=== PATIENT | female | born 1950 | race Hispanic/Latino ===

== ENCOUNTER 2025-05-14 22:51 | Emergency (ER) | payer OTHER ==
[2025-05-14 23:40] LABS: Absolute Lymphocytes (CBC) 2.0 K/uL (0.7-4.9); Hematocrit 37.4 % (36.0-45.0); Hemoglobin 12.7 g/dL (12.0-15.0); MCH 29.9 pg (27.0-35.0); MCHC 33.9 g/dL (32.0-36.0); MCV 88.2 fL (80-100); MPV 8.7 fL (7.6-11.3); Nucleated RBC Absolute Count 0.0 (0-0); Nucleated Red Blood Cells % 0.0 % (0-0); RBC Red Blood Cell Count 4.24 M/uL (3.86-4.86); White Blood Count 5.20 thou/uL (4.3-10.9)
[2025-05-15 00:05] LABS: Sqamous Epithelial None Seen /HPF (None Seen); Urine Culture Reflex Order NOT NEEDED; Urine Microscopic Reflex YN ORDER UMIC
[2025-05-15 00:38] LABS: ALT/SGPT 25 U/L (13-56); AST/SGOT 17 U/L (15-37); Albumin 3.2 g/dL (3.4-5.0); Albumin/Globulin Ratio 0.9 (1.1-1.8); Alkaline Phosphatase 80 U/L (45-117); Anion Gap 8.8 mEq/L (5.0-15.0); BUN Blood Urea Nitrogen 19 mg/dL (7-18); Globulin 3.4 g/dL (2.3-3.5); Glucose Level 110 mg/dL (74-106); Magnesium 2.2 mg/dL (1.6-2.4); Potassium 3.8 mEq/L (3.5-5.1); Troponin High Sensitivity 7.3 pg/mL (<58.9)
[2025-05-15 01:00] LABS: PT Prothrombin Time 12.3 SECONDS (10-13.0); PTT, Activated Partial Thromb 35.0 SECONDS (27.2-37.4); Protime INR 1.09
[2025-05-15 01:03] LABS: Bilirubin Indirect, Calculated 0.4 mg/dL (0.2-0.8)
--- NOTE | 2025-05-15 02:00 | RAD REPORT ---
ADDENDUM #1 Critical findings discussed with Dr. Martin at 11:58 PM central standard time. Electronically signed by: Miguelina Moraes MD 05/15/2025 01:16 AM WooMe End of Addendum EXAM DESCRIPTION: Ct Stroke Brain Wo Cont CLINICAL HISTORY: 74 years Female STROKE ALERT COMPARISON: None TECHNIQUE: Images were obtained in axial, sagittal, and coronal planes. This exam was performed according to our departmental dose-optimization program which includes use of Automated Exposure Control, adjustment of the mA and/or kV according to patient size and/or use of iterative reconstruction techn ique. FINDINGS: Moderate ventricular enlargement. Moderate prominence of the cortical sulci. No abnormal increased attenuation is seen. No extra-axial fluid collections noted. No evidence for skull fracture. Unremarkable paranasal sinuses. Symmetric aeration of mastoid air rajeev ls bilaterally. IMPRESSION: No acute intracranial abnormality. No evidence for hemorrhage, mass lesion, or large acute infarction . Age-appropriate changes. Electronically signed by: Miguelina Moraes MD 05/14/2025 11:55 PM EdicyT Due to temporary technical issues with the PACS[employer] reporting system, reports are being erica d by the in-house radiologist without review as a courtesy to ensure prompt reporting the interpreting radiologist is fully responsible for the content of the report. Transcribed Date/Time: 05/15/2025 1:59 AM
--- NOTE | 2025-05-15 02:01 | RAD REPORT ---
PROCEDURE: CT Angiography Head and Neck With Intravenous Contrast CLINICAL INDICATION: The patient is 74 years old and is Female; Stroke alert. TECHNIQUE: [place] [facility] [place]/head and neck CT angiography protocol performed with intravenous contrast. Sagitta l and coronal reformatted images were created and reviewed. This CT exam was performed using one or more of the following dose reduction techniques: automated exposure control, adjustment of the m A and/or kV according to patient size, and/or use of iterative reconstruction technique. MIP reconstructed images were created and reviewed. COMPARISON: None. FINDINGS: HEAD: RIGHT ANTERIOR CEREBRAL ARTERY: Unremarkable No occlusion or significant stenosis. Anterior com municating artery is present. No aneurysm. RIGHT MIDDLE CEREBRAL ARTERY: Unremarkable No occlusion or significant stenosis. No aneurysm. RIGHT POSTERIOR CEREBRAL ARTERY: Unremarkable No occlusion or significant stenosis. No aneurysm . RIGHT INTRACRANIAL INTERNAL CAROTID ARTERY: Unremarkable No significant stenosis. No dissection or occlusion. RIGHT INTRACRANIAL VERTEBRAL ARTERY: Unremarkable No significant stenosis. No dissection or occ lusion. LEFT ANTERIOR CEREBRAL ARTERY: Unremarkable No occlusion or significant stenosis. No aneurysm. LEFT MIDDLE CEREBRAL ARTERY: Unremarkable No occlusion or significant stenosis. No aneurysm. LEFT POSTERIOR CEREBRAL ARTERY: origin of the left ATTENDANT CAMPGROUND. No occlusion or significant stenosis. No aneurysm. LEFT INTRACRANIAL INTERNAL CAROTID ARTERY: Unremarkable No significant stenosis. No dissection or occlusion. LEFT INTRACRANIAL VERTEBRAL ARTERY: Unremarkable No significant stenosis. No dissection or occl usion. BASILAR ARTERY: Unremarkable No occlusion or significant stenosis. No aneurysm. OTHER VASCULATURE: No vascular malformation. No filling defect within the superficial or deep intracranial veins to suggest sinus thrombos is. BRAIN AND EXTRA-AXIAL SPACES: Moderate global cerebral atrophy with commensurate sulcal and ventric ular enlargement, not greater than expected for patient age. Moderate-sized midline posterior fossa arachnoid cyst versus junaid cisterna magna. NECK: RIGHT COMMON CAROTID ARTERY: Unremarkable No significant stenosis. No dissection or occlusion. RIGHT EXTRACRANIAL INTERNAL CAROTID ARTERY: Unremarkable No significant stenosis. No dissection or occlusion. RIGHT EXTERNAL CAROTID ARTERY: Unremarkable No occlusion. RIGHT EXTRACRANIAL VERTEBRAL ARTERY: Unremarkable No significant stenosis. No dissection or occ lusion. LEFT COMMON CAROTID ARTERY: Unremarkable No significant stenosis. No dissection or occlusion. LEFT EXTRACRANIAL INTERNAL CAROTID ARTERY: Unremarkable No significant stenosis. No dissection or occlusion. LEFT EXTERNAL CAROTID ARTERY: Unremarkable No occlusion. LEFT EXTRACRANIAL VERTEBRAL ARTERY: Unremarkable No significant stenosis. No dissection or occl usion. OROPHARYNX: Punctate calcifications noted in the bilateral palatine tonsils, suggesting chronic ton sillitis. LUNG APICES: Unremarkable as visualized. HEAD and NECK: BONES/JOINTS: Multilevel cervical spondylosis without acute osseous abnormality. No discrete lytic or blastic abnormalities. SOFT TISSUES: Unremarkable CAROTID STENOSIS REFERENCE USING NASCET CRITERIA: % ICA stenosis = (1 - narrowest ICA diameter/diameter of distal cervical ICA) x 100. Mild - <50% stenosis. Moderate - 50-69% stenosis. Severe - 70-94% stenosis. Near occlusion - 95-99% stenosis. Occluded - 100% stenosis. IMPRESSION: 1. No occlusion, high-grade stenosis, or acute abnormality of the cervical or central intracranial arteries. 2. Punctate calcifications noted in the bilateral palatine tonsils, suggesting chronic tonsillitis. Electronically signed by: Desean Ruiz MD 05/15/2025 12:39 AM CDT RP Due to temporary technical issues with the PACS/[employer] reporting system, reports are being erica d by the in-house radiologist without review as a courtesy to ensure prompt reporting the interpreting radiologist is fully responsible for the content of the report. Transcribed Date/Time: 05/15/2025 2:00 AM
--- NOTE | 2025-05-15 02:21 | ER ---
Nurse's Notes [facility] Name: Michelle Metz Age: 74 yrs Sex: Female : 1950 Arrival Date: 05/14/2025 Time: 22:51 Bed 5 Private MD: Diagnosis: Transient cerebral ischemic attack, unspecified Presentation: 05/14 23:01 Chief complaint: Patient states: SLURRED SPEECH, CONFUSED, GENERALIZED WEAKNESS AROUND ha1 9:30 PM. SLURRED SPEECH HAS RESOLVED BUT STILL FEELING GENERALIZED WEAKNESS AND NOT HERSELF. 23:01 Coronavirus screen: Client denies travel out of the [place] in the last 14 days. Ebola ha1 Screen: No symptoms or risks identified at this time. Initial Sepsis Screen: Does the patient meet any 2 criteria? No. Patient's initial sepsis screen is negative. Does the patient have a suspected source of infection? No. Patient's initial sepsis screen is negative. Risk Assessment: Do you want to hurt yourself or someone else? Patient reports no desire to harm self or others. Onset of symptoms was May 14, 2025. 23:01 Method Of Arrival: Wheelchair ha1 23:01 Acuity: MARIELLE 2 ha1 Triage Assessment: 23:01 General: Appears comfortable, Behavior is calm, cooperative. Pain: Denies pain. Neuro: ha1 Level of Consciousness is awake, alert, obeys commands, Oriented to person, place, time, situation, Reports dizziness, weakness slurred speech at 2130. Cardiovascular: Capillary refill < 3 seconds Patient's skin is warm and dry. Respiratory: Airway is patent Respiratory effort is even, unlabored, Respiratory pattern is regular, symmetrical. GI: No signs and/or symptoms were reported involving the gastrointestinal system. Abdomen is round non-distended. : No signs and/or symptoms were reported regarding the genitourinary system. Derm: Skin is normal. Musculoskeletal: Circulation, motion, and sensation intact. Historical: - Allergies: 23:30 No Known Allergies; ha1 - PMHx: 23:30 Hypertensive disorder; VERTIGO; Hypercholesterolemia; ha1 - PSHx: 23:30 Cholecystectomy; ha1 - Immunization history:: Adult Immunizations up to date. - Infectious Disease History:: Denies. - Social history:: Smoking status: Patient denies any tobacco usage or history of. Screenin:01 [facility] ED Fall Risk Assessment (Adult) History of falling in the last 3 months, lg3 including since admission No falls in past 3 months (0 pts) Confusion or Disorientation No (0 pts) Intoxicated or Sedated No (0 pts) Impaired Gait No (0 pts) Mobility Assist Device Used No (0 pt) Altered Elimination No (0 pt) Score/Fall Risk Level 0 - 2 = Low Risk Oriented to surroundings, Maintained a safe environment, Educated pt \T\ family on fall prevention, incl call for assistance when getting out of bed, Assessed \T\ reinforced patient's understanding of fall precautions. VAN Screening: Arm Drift: Patient shows no arm weakness. Patient is VAN negative. Visual Disturbance: No visual disturbance noted. Aphasia: No aphasia noted. Neglect: No neglect noted. [place] Swallow Protocol Brief Cognitive Screen What is your name? Normal, Where are you right now? Normal, What year is it? Normal. Oral Mechanism Examination Facial Symmetry: Normal, Motion: Normal, Lip Closure: Normal, Oral Mechanism Result: Normal. 3 oz Water Swallow Challenge: Pt able to drink all water without stopping, coughing, choking or throat clearing: Yes Result: PASS Notified: Dewey Martin MD. 23:32 Abuse screen: Denies threats or abuse. Denies injuries from another. Nutritional ha1 screening: No deficits noted. Tuberculosis screening: No symptoms or risk factors identified. Assessment: 23:01 General: Appears in no apparent distress. comfortable, Behavior is calm, cooperative. lg3 Pain: Denies pain. Neuro: No deficits noted. [place] Agitation-Sedation Scale (RASS): 0 - Alert and Calm Level of Consciousness is awake, alert, obeys commands, Oriented to person, place, time, situation, Fuse Spooler are equal bilaterally Moves all extremities. Full function Gait is steady, Speech is normal, Facial symmetry appears normal, Pupils are PERRLA, Intact Reports dizziness, weakness. Cardiovascular: No deficits noted. Denies chest pain, shortness of breath, Capillary refill < 3 seconds Clubbing of nail beds is absent JVD is absent Patient's skin is warm and dry. Respiratory: No deficits noted. Airway is patent Respiratory effort is even, Respiratory pattern is regular, Breath sounds are clear bilaterally. GI: No deficits noted. No signs and/or symptoms were reported involving the gastrointestinal system. Abdomen is round non-distended, Abd is soft and non tender X 4 quads. : No signs and/or symptoms were reported regarding the genitourinary system. EENT: No deficits noted. No signs and/or symptoms were reported regarding the EENT system. Derm: No deficits noted. No signs and/or symptoms reported regarding the dermatologic system. Skin is intact, is healthy with good turgor, Skin is dry, Skin is normal, Skin temperature is warm. Musculoskeletal: No deficits noted. Circulation, motion, and sensation intact. Range of motion: intact in all extremities. 05/15 00:00 Reassessment: Patient appears in no apparent distress at this time. No changes from lg3 previously documented assessment. Patient and/or family updated on plan of care and expected duration. Pain level reassessed. Patient is alert, oriented x 3, equal unlabored respirations, skin warm/dry/pink. Patient denies pain at this time. Patient states feeling better. Patient states symptoms have improved. 00:30 Reassessment: Patient appears in no apparent distress at this time. No changes from lg3 previously documented assessment. Patient and/or family updated on plan of care and expected duration. Pain level reassessed. Patient is alert, oriented x 3, equal unlabored respirations, skin warm/dry/pink. Patient denies pain at this time. Patient states feeling better. Patient states symptoms have improved. 01:30 Reassessment: Patient appears in no apparent distress at this time. No changes from lg3 previously documented assessment. Patient and/or family updated on plan of care and expected duration. Pain level reassessed. Patient is alert, oriented x 3, equal unlabored respirations, skin warm/dry/pink. Patient denies pain at this time. Patient states feeling better. Patient states symptoms have improved. 02:30 Reassessment: Patient appears in no apparent distress at this time. No changes from lg3 previously documented assessment. Patient and/or family updated on plan of care and expected duration. Pain level reassessed. Patient is alert, oriented x 3, equal unlabored respirations, skin warm/dry/pink. Patient denies pain at this time. Patient states feeling better. Patient states symptoms have improved. Vital Signs: 05/14 23:01 BP 146 / 58; Pulse 85; Resp 18 S; Temp 98.6(O); Pulse Ox 98% on R/A; Weight 73.94 kg; ha1 Height 5 ft. 3 in. ; 23:30 BP 143 / 66; Pulse 87; Resp 17 S; Pulse Ox 98% on R/A; lg3 05/15 00:00 BP 131 / 59; Pulse 74; Resp 18 S; Pulse Ox 99% on R/A; lg3 00:30 BP 124 / 53; Pulse 72; Resp 17; Pulse Ox 96% on R/A; lg3 01:00 BP 121 / 59; Pulse 69; Resp 18 S; Pulse Ox 95% on R/A; lg3 01:30 BP 123 / 55; Pulse 66; Resp 19 S; Pulse Ox 95% on R/A; lg3 02:00 BP 126 / 59; Pulse 68; Resp 18 S; Pulse Ox 95% on R/A; lg3 02:30 BP 124 / 61; Pulse 70; Resp 17 S; Pulse Ox 96% on R/A; lg3 05/14 23:01 Body Mass Index 28.87 (73.94 kg, 160.02 cm) ha1 NIH Stroke Scale Scores: 05/14 23:01 NIHSS Score: 0 lg3 05/15 00:30 NIHSS Score: 0 lg3 02:30 NIHSS Score: 0 lg3 ED Course: 05/14 22:55 Patient arrived in ED. gm2 23:01 Inserted saline lock: 20 gauge in left antecubital area, using aseptic technique. Blood lg3 collected. Flushed with 10 mL NS. 23:01 Patient has correct armband on for positive identification. Placed in gown. Bed in low lg3 position. Call light in reach. Side rails up X2. Client placed on continuous cardiac and pulse oximetry monitoring. NIBP monitoring applied. environmental monitoring technician on. Door closed. Noise minimized. Warm blanket given. Pillow given. Family accompanied patient. 23:01 One-on-one care X 30 minutes. lg3 23:01 Arm band placed on right wrist. lg3 23:14 Dewey Martin MD is Attending Physician. tw7 23:26 Basic Metabolic Panel Sent. ha1 23: CBC with Diff Sent. ha1 23: Hepatic Function Sent. ha1 23: High Sensitivity Troponin Sent. ha1 23: Magnesium Sent. ha1 23: Protime (+inr) Sent. ha1 23: Ptt, Activated Sent. ha1 23:30 Triage completed. ha1 23:39 UA Rfx Calvin Cult if indicated Sent. lg3 23:43 CT Head Angio In Process Unspecified. EDMS 23:44 CT Neck Angio In Process Unspecified. EDMS 23:44 CT Stroke Brain w/o Contrast In Process Unspecified. EDMS 23:54 Teresa Hernandez, RN is Primary Nurse. lg3 23:56 Stroke CXR 1 View In Process Unspecified. EDMS 05/15 02:20 Cuauhtemoc Baxter MD is Referral Physician. tw7 02:30 No provider procedures requiring assistance completed. IV discontinued, intact, lg3 bleeding controlled, No redness/swelling at site. Pressure dressing applied. Administered Medications: No medications were administered Medication: 05/14 23:01 VIS not applicable for this client. lg3 Outcome: 05/15 02:20 Discharge ordered by . tw7 02:30 Discharged to home ambulatory, with family, lg3 02:30 Condition: stable 02:30 Discharge instructions given to patient, Instructed on discharge instructions, follow up and referral plans. Demonstrated understanding of instructions, follow-up care, 02:42 Patient left the ED. lg3 NIH Stroke Scale - NIH Stroke Score Date: 05/14/2025 Time: 23:01 Total Score = 0 10. Dysarthria (speech clarity - read or repeat words) - 0(Normal) 11. Extinction and Inattention (visual/tactile/auditory/spatial/personal) - 0(No abnormality) 1a. Level of Consciousness (LOC) - 0(Alert) 1b. Level of Consciousness (LOC) (Month \T\ Age) - 0(Both) 1c. LOC Commands (Open \T\ Closes Eyes/Light Industrial Supervisor) - 0(Both) 2. Best Gaze (Lateral Gaze Paresis) - 0(Normal) 3. Visual Field Loss - 0(No visual loss) 4. Facial Palsy - 0(Normal) 5a. Left Arm: Motor (10-second hold) - 0(No drift) 5b. Right Arm: Motor (10-second hold) - 0(No drift) 6a. Left Leg: Motor (5-second hold - always test supine) - 0(No drift) 6b. Right Leg: Motor (5-second hold - always test supine) - 0(No drift) 7. Limb Ataxia (finger/nose \T\ heel/escobar - test with eyes open) - 0(Absent) 8. Sensory Loss (pinprick arms/legs/face) - 0(Normal) 9. Best Language: Aphasia (description/naming/reading) - 0(No aphasia) Initials: lg3 NIH Stroke Scale - NIH Stroke Score Date: 05/15/2025 Time: 00:30 Total Score = 0 10. Dysarthria (speech clarity - read or repeat words) - 0(Normal) 11. Extinction and Inattention (visual/tactile/auditory/spatial/personal) - 0(No abnormality) 1a. Level of Consciousness (LOC) - 0(Alert) 1b. Level of Consciousness (LOC) (Month \T\ Age) - 0(Both) 1c. LOC Commands (Open \T\ Closes Eyes/Light Industrial Supervisor) - 0(Both) 2. Best Gaze (Lateral Gaze Paresis) - 0(Normal) 3. Visual Field Loss - 0(No visual loss) 4. Facial Palsy - 0(Normal) 5a. Left Arm: Motor (10-second hold) - 0(No drift) 5b. Right Arm: Motor (10-second hold) - 0(No drift) 6a. Left Leg: Motor (5-second hold - always test supine) - 0(No drift) 6b. Right Leg: Motor (5-second hold - always test supine) - 0(No drift) 7. Limb Ataxia (finger/nose \T\ heel/escobar - test with eyes open) - 0(Absent) 8. Sensory Loss (pinprick arms/legs/face) - 0(Normal) 9. Best Language: Aphasia (description/naming/reading) - 0(No aphasia) Initials: lg3 NIH Stroke Scale - NIH Stroke Score Date: 05/15/2025 Time: 02:30 Total Score = 0 10. Dysarthria (speech clarity - read or repeat words) - 0(Normal) 11. Extinction and Inattention (visual/tactile/auditory/spatial/personal) - 0(No abnormality) 1a. Level of Consciousness (LOC) - 0(Alert) 1b. Level of Consciousness (LOC) (Month \T\ Age) - 0(Both) 1c. LOC Commands (Open \T\ Closes Eyes/Light Industrial Supervisor) - 0(Both) 2. Best Gaze (Lateral Gaze Paresis) - 0(Normal) 3. Visual Field Loss - 0(No visual loss) 4. Facial Palsy - 0(Normal) 5a. Left Arm: Motor (10-second hold) - 0(No drift) 5b. Right Arm: Motor (10-second hold) - 0(No drift) 6a. Left Leg: Motor (5-second hold - always test supine) - 0(No drift) 6b. Right Leg: Motor (5-second hold - always test supine) - 0(No drift) 7. Limb Ataxia (finger/nose \T\ heel/escobar - test with eyes open) - 0(Absent) 8. Sensory Loss (pinprick arms/legs/face) - 0(Normal) 9. Best Language: Aphasia (description/naming/reading) - 0(No aphasia) Initials: lg3 Signatures: Dispatcher [employer] EDTeresa Gleason RN RN lg3 Ada Sutton RN RN ha1 Stephany Chicas 2 Dewey Martin MD MD tw7 Corrections: (The following items were deleted from the chart) 02:36 08 23:01 Neuro: Level of Consciousness is awake, alert, obeys commands, ha1 Oriented to person, place, time, situation, ha1
--- NOTE | 2025-05-15 02:21 | EDPHYS ---
Physician Documentation [facility] Name: Michelle Metz Age: 74 yrs Sex: Female : 1950 Arrival Date: 05/14/2025 Time: 22:51 Bed 5 Private MD: ED Physician Dewey Martin HPI: 05/15 01:54 This 74 yrs old Female presents to ER via Wheelchair with complaints of tw7 Dizziness, Shaking. 02:05 74-year-old female with a past medical history of hypertension, diabetes, tw7 hyperlipidemia is brought in by family for further evaluation of dizziness, shakiness, generalized weakness, slurred speech. Some dizziness. Patient currently reports that her symptoms are all resolved now, she denies chest pain, shortness of breath, abdominal pain nausea vomiting headache fever no focal arm or leg weakness.. Historical: - Allergies: 05/14 23:30 No Known Allergies; ha1 - PMHx: 23:30 Hypertensive disorder; VERTIGO; Hypercholesterolemia; ha1 - PSHx: 23:30 Cholecystectomy; ha1 - Immunization history:: Adult Immunizations up to date. - Infectious Disease History:: Denies. - Social history:: Smoking status: Patient denies any tobacco usage or history of. ROS: 05/15 02:06 Constitutional: Negative for fever, chills, and weight loss, Eyes: Negative for injury, tw7 pain, redness, and discharge, ENT: Negative for injury, pain, and discharge, Neck: Negative for injury, pain, and swelling, Cardiovascular: Negative for chest pain, palpitations, and edema, Respiratory: Negative for shortness of breath, cough, wheezing, and pleuritic chest pain, Abdomen/GI: Negative for abdominal pain, nausea, vomiting, diarrhea, and constipation, Back: Negative for injury and pain, MS/Extremity: Negative for injury and deformity, Neuro: Negative for headache, weakness, numbness, tingling, and seizure, Exam: 02:06 Constitutional: This is a well developed, well nourished patient who is awake, alert, tw7 and in no acute distress. Head/Face: Normocephalic, atraumatic. Eyes: Pupils equal round and reactive to light, extra-ocular motions intact. Lids and lashes normal. Conjunctiva and sclera are non-icteric and not injected. Cornea within normal limits. Periorbital areas with no swelling, redness, or edema. ENT: Nares patent. No nasal discharge, no septal abnormalities noted. Tympanic membranes are normal and external auditory canals are clear. Oropharynx with no redness, swelling, or masses, exudates, or evidence of obstruction, uvula midline. Mucous membranes moist. Neck: Trachea midline, no thyromegaly or masses palpated, and no cervical lymphadenopathy. Supple, full range of motion without nuchal rigidity, or vertebral point tenderness. No Meningismus. Chest/axilla: Normal chest wall appearance and motion. Nontender with no deformity. No lesions are appreciated. Cardiovascular: Regular rate and rhythm with a normal S1 and S2. No gallops, murmurs, or rubs. Normal PMI, no JVD. No pulse deficits. Respiratory: Lungs have equal breath sounds bilaterally, clear to auscultation and percussion. No rales, rhonchi or wheezes noted. No increased work of breathing, no retractions or nasal flaring. Abdomen/GI: Soft, non-tender, with normal bowel sounds. No distension or tympany. No guarding or rebound. No evidence of tenderness throughout. Negative Pierce's. Negative McBurney's Skin: Warm, dry with normal turgor. Normal color with no rashes, no lesions, and no evidence of cellulitis. MS/ Extremity: Pulses equal, no cyanosis. Neurovascular intact. Full, normal range of motion. Neuro: Awake and alert, GCS 15, oriented to person, place, time, and situation. Cranial nerves II-XII grossly intact. Motor strength 5/5 in all extremities. Sensory grossly intact. Cerebellar exam normal. Normal gait. 06:59 ECG was reviewed by the Attending Physician. tw7 Vital Signs: 05/14 23:01 BP 146 / 58; Pulse 85; Resp 18 S; Temp 98.6(O); Pulse Ox 98% on R/A; Weight 73.94 kg; ha1 Height 5 ft. 3 in. ; 23:30 BP 143 / 66; Pulse 87; Resp 17 S; Pulse Ox 98% on R/A; lg3 05/15 00:00 BP 131 / 59; Pulse 74; Resp 18 S; Pulse Ox 99% on R/A; lg3 00:30 BP 124 / 53; Pulse 72; Resp 17; Pulse Ox 96% on R/A; lg3 01:00 BP 121 / 59; Pulse 69; Resp 18 S; Pulse Ox 95% on R/A; lg3 01:30 BP 123 / 55; Pulse 66; Resp 19 S; Pulse Ox 95% on R/A; lg3 02:00 BP 126 / 59; Pulse 68; Resp 18 S; Pulse Ox 95% on R/A; lg3 02:30 BP 124 / 61; Pulse 70; Resp 17 S; Pulse Ox 96% on R/A; lg3 05/14 23:01 Body Mass Index 28.87 (73.94 kg, 160.02 cm) ha1 NIH Stroke Scale Scores: 05/14 23:01 NIHSS Score: 0 lg3 05/15 00:30 NIHSS Score: 0 lg3 02:30 NIHSS Score: 0 lg3 MDM: 01:53 Data reviewed: vital signs, nurses notes, EMS record. ED course: CT brain performed tw shows no acute intracranial abnormality. No evidence of hemorrhage or mass effect lesion. CTA brain and neck shows no evidence of occlusion or high-grade stenosis or acute abnormality. . 01:59 Medical Screening Exam initiated tw 02:07 ED course: . tw7 02:19 ED course: Lab work performed shows no leukocytosis. Normal hemoglobin. Normal tw7 platelets. Troponin is negative. Magnesium is normal. PT PTT are normal urinalysis is negative for UTI. Patient has normal electrolytes. Normal kidney function. Normal calcium. Patient's presentation concerning for possible transient ischemic attack. CT brain and CTA brain and neck are negative in the ED. Patient is offered admission to the hospital for further workup of transischemic attack, MRI, neurology consultation and further evaluation management. Patient and family at bedside do not want to be admitted to the hospital, states that they will follow-up closely outpatient with a primary care doctor and a neurologist. Patient discharged to outpatient PCP and neurology follow-up.. 05/14 23:15 Order name: Basic Metabolic Panel; Complete Time: :05/14 23:15 Order name: CBC with Diff; Complete Time: :05/14 23:15 Order name: Hepatic Function; Complete Time: 05/14 23:15 Order name: High Sensitivity Troponin; Complete Time: 05/14 23:15 Order name: Magnesium; Complete Time: 01:49 05/14 23:15 Order name: Protime (+inr); Complete Time: 01:49 05/14 23:15 Order name: Ptt, Activated; Complete Time: 01:49 05/14 23:33 Order name: Glucose, Ancillary Testing; Complete Time: 01:49 EDMS 05/14 23:34 Order name: UA Rfx Calvin Cult if indicated; Complete Time: 01:49 kmf 05/14 23:15 Order name: CT Head Angio; Complete Time: 02:10 05/14 23:15 Order name: CT Neck Angio; Complete Time: 02:10 05/14 23:15 Order name: CT Stroke Brain w/o Contrast; Complete Time: 02:10 05/14 23:15 Order name: Stroke CXR 1 View 05/14 23:15 Order name: Accucheck; Complete Time: 23:26 05/14 23:15 Order name: Cardiac monitoring; Complete Time: 23:26 05/14 23:15 Order name: EKG - Nurse/Tech; Complete Time: 23:26 05/14 23:15 Order name: IV Saline Lock; Complete Time: 23:26 05/14 23:15 Order name: Labs collected and sent; Complete Time: 23:26 05/14 23:15 Order name: NPO; Complete Time: 23:26 05/14 23:15 Order name: O2 Per Protocol; Complete Time: 23:26 05/14 23:15 Order name: O2 Sat Monitoring; Complete Time: 23:26 05/14 23:15 Order name: Stroke Swallow Screen; Complete Time: 00:07 05/14 23:41 Order name: Misc. Order: RECOLLECT GREEN TOP; Complete Time: 00:06 rv1 EC:59 Rate is 92 beats/min. Rhythm is regular. QRS Semmes is Normal. [place] interval is prolonged tw7 at 212 msec. QRS interval is normal. QT interval is normal. No Q waves. T waves are Normal. No ST changes noted. Administered Medications: No medications were administered Disposition Summary: 05/15/25 02:20 Discharge Ordered Notes: Location: Home tw7 Problem: new tw7 Symptoms: have improved tw7 Condition: Stable tw7 Diagnosis - Transient cerebral ischemic attack, unspecified tw7 Followup: tw7 - With: Cuauhtemoc Baxter MD - When: - Reason: Recheck today's complaints Discharge Instructions: - Discharge Summary Sheet tw7 - Transient Ischemic Attack tw7 Forms: - Medication Reconciliation Form tw7 - Antibiotic Education tw7 - Prescription Opioid Use tw7 - Patient Portal Instructions tw7 - Leadership Thank You Letter tw7 NIH Stroke Scale - NIH Stroke Score Date: 05/14/2025 Time: 23:01 Total Score = 0 10. Dysarthria (speech clarity - read or repeat words) - 0(Normal) 11. Extinction and Inattention (visual/tactile/auditory/spatial/personal) - 0(No abnormality) 1a. Level of Consciousness (LOC) - 0(Alert) 1b. Level of Consciousness (LOC) (Month \T\ Age) - 0(Both) 1c. LOC Commands (Open \T\ Closes Eyes/Polisher Sand) - 0(Both) 2. Best Gaze (Lateral Gaze Paresis) - 0(Normal) 3. Visual Field Loss - 0(No visual loss) 4. Facial Palsy - 0(Normal) 5a. Left Arm: Motor (10-second hold) - 0(No drift) 5b. Right Arm: Motor (10-second hold) - 0(No drift) 6a. Left Leg: Motor (5-second hold - always test supine) - 0(No drift) 6b. Right Leg: Motor (5-second hold - always test supine) - 0(No drift) 7. Limb Ataxia (finger/nose \T\ heel/escobar - test with eyes open) - 0(Absent) 8. Sensory Loss (pinprick arms/legs/face) - 0(Normal) 9. Best Language: Aphasia (description/naming/reading) - 0(No aphasia) Initials: lg3 NIH Stroke Scale - NIH Stroke Score Date: 05/15/2025 Time: 00:30 Total Score = 0 10. Dysarthria (speech clarity - read or repeat words) - 0(Normal) 11. Extinction and Inattention (visual/tactile/auditory/spatial/personal) - 0(No abnormality) 1a. Level of Consciousness (LOC) - 0(Alert) 1b. Level of Consciousness (LOC) (Month \T\ Age) - 0(Both) 1c. LOC Commands (Open \T\ Closes Eyes/Polisher Sand) - 0(Both) 2. Best Gaze (Lateral Gaze Paresis) - 0(Normal) 3. Visual Field Loss - 0(No visual loss) 4. Facial Palsy - 0(Normal) 5a. Left Arm: Motor (10-second hold) - 0(No drift) 5b. Right Arm: Motor (10-second hold) - 0(No drift) 6a. Left Leg: Motor (5-second hold - always test supine) - 0(No drift) 6b. Right Leg: Motor (5-second hold - always test supine) - 0(No drift) 7. Limb Ataxia (finger/nose \T\ heel/escobar - test with eyes open) - 0(Absent) 8. Sensory Loss (pinprick arms/legs/face) - 0(Normal) 9. Best Language: Aphasia (description/naming/reading) - 0(No aphasia) Initials: lg3 NIH Stroke Scale - NIH Stroke Score Date: 05/15/2025 Time: 02:30 Total Score = 0 10. Dysarthria (speech clarity - read or repeat words) - 0(Normal) 11. Extinction and Inattention (visual/tactile/auditory/spatial/personal) - 0(No abnormality) 1a. Level of Consciousness (LOC) - 0(Alert) 1b. Level of Consciousness (LOC) (Month \T\ Age) - 0(Both) 1c. LOC Commands (Open \T\ Closes Eyes/Polisher Sand) - 0(Both) 2. Best Gaze (Lateral Gaze Paresis) - 0(Normal) 3. Visual Field Loss - 0(No visual loss) 4. Facial Palsy - 0(Normal) 5a. Left Arm: Motor (10-second hold) - 0(No drift) 5b. Right Arm: Motor (10-second hold) - 0(No drift) 6a. Left Leg: Motor (5-second hold - always test supine) - 0(No drift) 6b. Right Leg: Motor (5-second hold - always test supine) - 0(No drift) 7. Limb Ataxia (finger/nose \T\ heel/escobar - test with eyes open) - 0(Absent) 8. Sensory Loss (pinprick arms/legs/face) - 0(Normal) 9. Best Language: Aphasia (description/naming/reading) - 0(No aphasia) Initials: lg3 Signatures: Dispatcher [employer] EDMS Ada Sutton, RN RN ha1 Geri Jasso rv1 Dewey Martin MD MD tw7 Corrections: (The following items were deleted from the chart) 05/14 23:16 23:16 BASIC METABOLIC PANEL+C.LAB.BRZ ordered. EDMS EDMS 23:16 23:16 CBC+H.LAB.BRZ ordered. EDMS EDMS 23:16 23:16 HEPATIC FUNCTION+C.LAB.BRZ ordered. EDMS EDMS 23:16 23:16 Troponin High Sensitivity+C.LAB.BRZ ordered. EDMS EDMS 23:16 23:16 MAGNESIUM+C.LAB.BRZ ordered. EDMS EDMS 23:16 23:16 PROTIME (+INR)+COAG.LAB.BRZ ordered. EDMS EDMS 23:16 23:16 PTT, ACTIVATED+COAG.LAB.BRZ ordered. EDMS EDMS 23:16 23:16 Head Angio+CT.RAD.BRZ ordered. EDMS EDMS 23:16 23:16 Neck Angio+CT.RAD.BRZ ordered. EDMS EDMS 23:16 23:16 CT-STROKE BRAIN W/O CONTRAST+CT.RAD.BRZ ordered. EDMS EDMS 23:16 23:16 Chest Single View+RAD.RAD.BRZ ordered. EDMS EDMS 23:34 23:34 UA Rfx Calvin Cult if indicated+U.LAB.BRZ ordered. EDMS EDMS
--- NOTE | 2025-05-15 05:30 | RAD REPORT ---
EXAM DESCRIPTION: Chest Single View CLINICAL HISTORY: 74 years Female SOB COMPARISON: None TECHNIQUE: AP view of the chest was obtained. FINDINGS: Cardiac size is within normal limits. Central vessels are not increased. No infiltrates or effusions seen. No consolidation. No pneumothorax. IMPRESSION: No active disease. Electronically signed by: Miguelina Moraes MD 05/15/2025 12:37 AM CDT RP Due to temporary technical issues with the PACS/[employer] reporting system, reports are being erica d by the in-house radiologist without review as a courtesy to ensure prompt reporting the interpreting radiologist is fully responsible for the content of the report. Transcribed Date/Time: 05/15/2025 5:30 AM
[2025-05-15 06:11] VITALS: TEMP 98.6
[2025-05-15 06:31] VITALS: BP 124/61; O2SAT 96
== END 2025-05-15 02:42 | disposition home or self-care (01) ==
LOC: ER 22:51
DX: G45.9 Transient cerebral ischemic attack, unspecified (principal); I10 Essential (primary) hypertension; R29.700 NIHSS score 0
CPT/HCPCS: 93005; 85025; 81001; 80048; 36415; 83735; 85610; 82947; 80076; 85730; 84484; 70496; 70498; 70450; 71045; Q9967